=== PATIENT | female | born 1995 | race Caucasian/White ===

== ENCOUNTER 2019-04-06 02:39 | Emergency (ER) | payer OTHER ==
[2019-04-06] MEDS: DEXAMETHASONE 10 MG/ML 1 ML INJ IM (03:10)
[2019-04-06] MEDS: RANITIDINE 150 MG TAB PO (03:24)
[2019-04-06] MEDS ORDERED: DIPHENHYDRAMINE 50 MG INJ IM (03:30)
[2019-04-06] MEDS: DIPHENHYDRAMINE 50 MG CAP PO ×2 (03:38→04:02)
== END 2019-04-06 04:03 | disposition home or self-care (01) ==
LOC: FTE 02:39
DX: L50.0 Allergic urticaria (principal)
CPT/HCPCS: 96372; 99284-25